=== PATIENT | male | born 1985 | race Caucasian/White ===

== ENCOUNTER 2021-11-07 20:27 | Emergency (ER) | payer SELFPAY ==
[~2021-11-07] VITALS: Ht 167.6 cm; Wt 59.0 kg
[2021-11-07 21:18] VITALS: BP 140/76
--- NOTE | 2021-11-07 21:37 | PHYS DOC ---
Past History Past Surgical History: No Surgical History (MAAME LECHUGA) Smoking: Cigarettes Alcohol Use: Rarely (MAAME LECHUGA) General Adult EDM: Chief Complaint: LACERATION/AVULSION HPI: HPI: Patient is a 36 year old male who presents with laceration to the right side of his face, next his mouth. He reports additional lacerations to his right hand. Patient states he was walking down the stairs holding a cup that was wet after washing dishes, when he tripped and the cup smashed into his face. He states he did not want to present to the emergency department, but his father encouraged him to do so. Patient has not visited any medical technologist prn in several years, so does not believe his tetanus vaccination has been updated in the last 5 years. Patient has no other complaints at this time. (MAAME LECHUGA) Review of Systems: Review of Systems: ROS negative except as mentioned in HPI. (MAAME LECHUGA) Current Medications: Current Meds: Current Medications Medications (Trade) Dose Ordered Sig/Mark Start Time Stop Time Status Last Admin Dose Admin Diphtheria/ Pertussis/Tetanus Vacc (ADACEL TDap SYRINGE) 0.5 ml ONCE ONCE 11/07/21 21:30 11/07/21 21:31 UNV Lidocaine/ Epinephrine (Xylocaine 1%-Epi 1:100,000) 20 ml 1X ONCE 11/07/21 21:30 11/07/21 21:31 UNV (MAAME LECHUGA) Allergies: Allergies: Allergies Coded Allergies Type Severity Reaction Last Updated Verified Penicillins Allergy Intermediate 11/07/21 Yes (MAAME LECHUGA) Physical Exam: PE: Constitutional: Well developed, well nourished, somewhat disheveled, no acute distress, non-toxic appearance. HENT: Deep laceration noted on the right side of the face just lateral to the nose, extending to the corner of the mouth, and continues for approximately 1 cm towards the lateral chin, laceration does not extend into the oral mucosa. Normocephalic, bilateral external ears normal, oropharynx moist, no oral exudates, nose without obvious deformity or discharge. Eyes: PERRLA, EOMI, conjunctiva normal, no discharge. Neck: Normal range of motion, no tenderness, supple, no stridor. Cardiovascular: Heart rate regular rhythm, no murmur. Lungs & Thorax: Bilateral breath sounds clear to auscultation. Skin: Multiple lacerations noted to digits of right handdigit 2 with superficial lacerations on the pad of the finger, digit 3 with an incomplete avulsion to the pad of the finger, digit 4 deeper laceration at the tip of the finger extending towards the pad of the finger. Skin otherwise warm, dry, no erythema, no rash. See face laceration note above. Extremities: No tenderness, no cyanosis, no clubbing, ROM intact, no edema. See laceration note above. Neurologic: Alert and oriented x4, order function grossly intact, sensory function grossly intact, no focal deficits noted. (MAAME LECHUGA) Current Patient Data: Vital Signs: Vital Signs Date Time Temp Pulse Resp B/P (MAP) Pulse Ox O2 Delivery O2 Flow Rate FiO2 11/07/21 21:18 97.2 70 16 140/76 (97) 96 (MAAME LECHUGA) Heart Score: C/O Chest Pain: No (MAAME LECHUGA) Course & Med Decision Making: Course & Med Decision Making Pertinent Labs and Imaging studies reviewed. (See chart for details) Patient's laceration is perioral but does not cross the vermilion border. Laceration extends superiorly from the corner of the mouth 4 cm just lateral to the naris. The laceration extended inferior laterally 1 cm. Multiple lacerations to the fingers which were not deep. None of the finger laceration involved areas surrounding joints. Patient's tetanus status was unknown/greater than 10 years old. Tetanus was updated in the department. Patient asks how long the stitches should remain, and I informed him they should be there for 5 to 7 days. I advised him to return to the emergency department for suture removal. He states that he will not be back and that he will remove them himself. I repeated and strongly encouraged him to present to medical professional for wound reevaluation to ensure adequate healing. Per nursing staff, she had a similar conversation with him. Patient was provided with return instructions. He understands and is agreeable to discharge plan. (MAAME LECHUGA) Dragon Disclaimer: Dragon Disclaimer: This electronic medical record was generated, in whole or in part, using a voice recognition dictation system. (MAAME LECHUGA) Laceration Repair Lac Repair Indication: Laceration of multiple sites Procedure: The patient was placed in the appropriate position and anesthesia around the laceration was 6 cc 1% lidocaine with epinephrine. The area was then cleansed with chlorhexidine and irrigated with sterile saline. The laceration was closed with layered closure involving 5-0 Vicryl subcuticular running sutures and 10 simple interrupted 6-0 nylon sutures. Additional lacerations to the right hand were cleansed with normal saline and chlorhexidine, then closed with Dermabond only without anesthesia. The wound area was then dressed with bacitracin. Total repaired wound length: 11-12 cm. Other Items: The patient tolerated the procedure very well. Complications: No complications. (MAAME LECHUGA) Departure Departure: Impression: Primary Impression: Simple laceration of circumoral region of face Additional Impression: Laceration of multiple sites of right hand and fingers without complication Qualified Codes: S61.411A - Laceration without foreign body of right hand, initial encounter; S61.219A - Laceration without foreign body of unspecified finger without damage to nail, initial encounter Disposition: HOME / SELF CARE / HOMELESS Condition: STABLE Referrals: [facility] (PCP) Patient Instructions: Facial Laceration, [id number] Additional Instructions: Sutures may be removed in 5-7 days. You may return to the emergency department, visit your primary care provider or go to urgent care. Keep the wound clean and dry. You may apply antibacterial ointment a few times per day. Please return to the emergency department for signs of infection, including fever, redness around the wound or pus/discharge. Attending Signature Attending Signature I have participated in the care of this patient and I have reviewed and agree with all pertinent clinical information above including history, exam, and recommendations. (ROGELIO SOTO MD) MAAME LECHUGA Nov 07, 2021 21:37 ROGELIO SOTO MD Nov 10, 2021 21:33
[2021-11-07] MEDS ORDERED: LIDOCAINE 1%/EPI 1:100,000 20 ML VIAL. IJ ONE (22:00)
[2021-11-07] MEDS ORDERED: DIPH,PERTUSS(ACELL),TET VAC/PF 0.5 ML SYRINGE. VAX IM ONE (22:00)
[2021-11-08] MEDS ORDERED: BACITRACIN ZINC TOPICAL OINT PACKET. TP ONE
== END 2021-11-07 23:35 | disposition home or self-care (01) ==
LOC: ER 20:27
DX: S01.81XA Laceration without foreign body of other part of head, initial encounter (principal); S61.210A Laceration without foreign body of right index finger without damage to nail, initial encounter; S61.212A Laceration without foreign body of right middle finger without damage to nail, initial encounter; S61.214A Laceration without foreign body of right ring finger without damage to nail, initial encounter; F17.210 Nicotine dependence, cigarettes, uncomplicated; Z88.0 Allergy status to penicillin; W18.49XA Other slipping, tripping and stumbling without falling, initial encounter; Y93.01 Activity, walking, marching and hiking; Y92.89 Other specified places as the place of occurrence of the external cause; Y99.8 Other external cause status
CPT/HCPCS: 12004; 12013; 90471; 90715; 99285